=== PATIENT | female | born 1970 | race African-American/Black ===

== ENCOUNTER 2021-01-14 12:22 | Emergency (ER) | payer MEDICAID, OTHER ==
[~2021-01-14] VITALS: Ht 172.7 cm; Wt 90.7 kg
[2021-01-14] MEDS ORDERED: ONDANSETRON HCL 4 MG/2 ML VIAL IV ONE (13:00)
[2021-01-14] MEDS ORDERED: MORPHINE SULFATE 4 MG/ML SYR/VIAL IV ONE (13:00)
[2021-01-14 13:38] VITALS: BP 136/74
== END 2021-01-14 15:24 | disposition home or self-care (01) ==
LOC: EDBD 12:22 → ER 12:22
DX: S83.104A Unspecified dislocation of right knee, initial encounter (principal); I10 Essential (primary) hypertension; F17.210 Nicotine dependence, cigarettes, uncomplicated; X50.1XXA Overexertion from prolonged static or awkward postures, initial encounter; Y93.89 Activity, other specified; Y92.89 Other specified places as the place of occurrence of the external cause; Y99.8 Other external cause status
CPT/HCPCS: 29505; 73560; 96374; 96375; 99284; J2270; J2405

== ENCOUNTER → 2021-09-03 | Emergency (ER) | payer MEDICAID ==
[~2021-09-03] VITALS: Ht 170.2 cm; Wt 95.3 kg
[~2021-09-03] MED LIST: MORPHINE SULFATE 4 MG/ML SYR/VIAL IV ONE; ONDANSETRON HCL 4 MG/2 ML VIAL IV ONE; SODIUM CHLORIDE 0.9% 500 ML IVB ONE
[2021-09-03 18:28] VITALS: BP 149/89
[2021-09-03 19:24] LABS: Basophils # (auto) 0.1 10 ^3/uL (0-0.2); Basophils % (auto) 0.7 % (0.0-2.0); Eosinophils # (auto) 0.1 10 ^3/uL (0-0.8); Eosinophils % (auto) 1.4 % (0.0-7.0); Hematocrit 41.3 % (36.0-46.0); Hemoglobin 13.4 g/dL (12.2-16.2); Lymphocytes # (auto) 1.9 10 ^3/uL (0.4-5.4); Lymphocytes % (auto) 25.8 % (10.0-50.0); Mean Corpuscular Hemoglobin 24.6 pg (28.0-32.0); Mean Corpuscular Hgb Conc. 32.5 g/dL (32.0-36.0); Mean Corpuscular Volume 75.7 fL (80.0-100.0); Monocytes # (auto) 0.4 10 ^3/uL (0-1.3); Monocytes % (auto) 5.3 % (0.0-12.0); Neutrophils % (auto) 66.8 % (37.0-80.0); Nucleated Red Blood Cells % 0.1 %; Red Blood Cells 5.46 10^6/uL (4.0-5.20); Red Cell Distribution Width 17.1 % (11.8-14.3); White Blood Cell 7.5 10^3/uL (4.4-10.8)
[2021-09-03 19:44] LABS: Albumin 4.2 g/dL (3.4-5.0); Calcium 9.4 mg/dL (8.5-10.1); Magnesium 2.6 mg/dL (1.6-2.6); Potassium 3.9 mmol/L (3.5-5.1)
[2021-09-03 19:48] LABS: Bilirubin, Total 0.7 mg/dL (0.2-1.0)
[2021-09-03 19:56] LABS: BUN/Creatinine Ratio 14.5
== END | disposition home or self-care (01) ==
LOC: EDUNIT# 17:34 → EDBD 17:40 → ER 17:40
DX: R10.84 Generalized abdominal pain (principal); R11.2 Nausea with vomiting, unspecified; I10 Essential (primary) hypertension; F17.210 Nicotine dependence, cigarettes, uncomplicated
CPT/HCPCS: 36415; 80053; 82150; 83690; 83735; 85025